=== PATIENT | male | born 1990 | race Hispanic/Latino ===

== ENCOUNTER 2017-12-20 19:30 | Emergency (ER) | payer OTHER ==
[2017-12-20 20:19] VITALS: BP 113/70; PULSE 76; RESP 17; TEMP 98.3; O2SAT 99
--- NOTE | 2017-12-20 20:51 | ED PDOC ---
HPI: Wound Care - HPI Chief Complaint (Provider): Head Trauma History Per: Patient Exam Limitations: no limitations Additional Complaint(s): Patient is a 27 y/o male who presents to the ED for evaluation of head wound s/p trauma just prior to arrival. Patient reports he was playing basketball when another players chin hit him on top of his head. Patient denies loss of consciousness, dizziness, or headache. He does state that he has a wound on the top of his head. <Marysol Read - Last Filed: 12/20/17 21:03> <Mary Kay Morales - Last Filed: 12/20/17 22:20> - HPI Time Seen by Provider: 12/20/17 20:30 Chief Complaint (Nursing): Abnormal Skin Integrity Past Medical History Reviewed: Historical Data, Nursing Documentation, Vital Signs Vital Signs: Last Vital Signs Temp 98.3 F 12/20/17 20:11 Pulse 76 12/20/17 20:11 Resp 17 12/20/17 20:11 BP 113/70 12/20/17 20:11 Pulse Ox 99 12/20/17 20:11 - Medical History PMH: No Chronic Diseases - Surgical History Surgical History: No Surg Hx - Family History Family History: States: Unknown Family Hx <Marysol Read - Last Filed: 12/20/17 21:03> Vital Signs: Last Vital Signs Temp 98.3 F 12/20/17 20:11 Pulse 76 12/20/17 20:11 Resp 17 12/20/17 20:11 BP 113/70 12/20/17 20:11 Pulse Ox 99 12/20/17 21:05 <Mary Kay Morales - Last Filed: 12/20/17 22:20> - Allergies Allergies/Adverse Reactions: Allergies Allergy/AdvReac Type Severity Reaction Status Date / Time Cephalosporins Allergy Mild RASH Verified 12/20/17 20:20 Penicillins Allergy Mild RASH Verified 12/20/17 20:20 Review of Systems ROS Statement: Except As Marked, All Systems Reviewed And Found Negative Constitutional: Negative for: Fever Skin: Positive for: Other (wound on top of head) Neurological: Negative for: Headache, Dizziness <Marysol Read - Last Filed: 12/20/17 21:03> Physical Exam - Reviewed Nursing Documentation Reviewed: Yes Vital Signs Reviewed: Yes - Physical Exam Appears: Positive for: Non-toxic, No Acute Distress Head Exam: Negative for: ATRAUMATIC (1 cm linear abrasion to top of scalp; no active bleeding) Skin: Positive for: Normal Color, Warm, DRY Eye Exam: Positive for: EOMI, Normal appearance, PERRL Cardiovascular/Chest: Negative for: Murmur, Bradycardia, Tachycardia Respiratory: Negative for: Accessory Muscle Use, Respiratory Distress Extremity: Positive for: Normal ROM. Negative for: Pedal Edema, Deformity Neurologic/Psych: Positive for: Alert, network infrastructure architect II-XII (intact), Oriented (x3), Mood/Affect (flat), Cerebellar Tests (intact), Gait (steady). Negative for: Motor/Sensory Deficits, Aphasia, Facial Droop <Marysol Read - Last Filed: 12/20/17 21:03> - ECG O2 Sat by Pulse Oximetry: 99 (RA) Pulse Ox Interpretation: Normal <Marysol Read - Last Filed: 12/20/17 21:03> Medical Decision Making Medical Decision Making: Time: 20:30 Initial Impression: Head injury s/p trauma Initial Plan: Wound irrigated, antibiotic ointment applied. Time: 20:48 Upon provider evaluation patient is medically stable, and requires no further treatment in the ED at this time. Patient will be discharged home. Counseling was provided and all questions were answered regarding diagnosis. There is agreement to discharge plan. Return if symptoms persist or worsen. Scribe Attestation: Documented by Isreal Isbell, acting as a scribe for Marysol Read PA-C. Provider Scribe Attestation: All medical record entries made by the Scribe were at my direction and personally dictated by me. I have reviewed the chart and agree that the record accurately reflects my personal performance of the history, physical exam, medical decision making, and the department course for this patient. I have also personally directed, reviewed, and agree with the discharge instructions and disposition. <Marysol Read - Last Filed: 12/20/17 21:03> Disposition - Patient ED Disposition Is Patient to be Admitted: No Counseled Patient/Family Regarding: Diagnosis, Need For Followup - Disposition Disposition: Routine/Home Disposition Time: 20:48 <Marysol Read - Last Filed: 12/20/17 21:03> <Mary Kay Morales - Last Filed: 12/20/17 22:20> - Clinical Impression Clinical Impression: Scalp laceration - Disposition Referrals: [facility] [Outside] Condition: GOOD Instructions: Skin Abrasions Forms: [facility] (Swedish) - PA / CHEF'S ASSISTANT / Resident Statement MD/DO has reviewed & agrees with the documentation as recorded. <Mary Kay Morales - Last Filed: 12/20/17 22:20>
== END 2017-12-20 21:03 | disposition home or self-care (01) ==
LOC: H.ER 19:30
DX: S01.01XA Laceration without foreign body of scalp, initial encounter (principal); W22.8XXA Striking against or struck by other objects, initial encounter; Y93.67 Activity, basketball; Z88.0 Allergy status to penicillin